=== PATIENT | male | born 1965 | race Caucasian/White ===

== ENCOUNTER 2022-08-10 14:24 | Emergency (ER) | payer SELFPAY ==
[~2022-08-10] VITALS: Ht 177.8 cm; Wt 74.8 kg
[2022-08-10 14:24] VITALS: O2SAT 99
== END 2022-08-10 14:45 | disposition home or self-care (01) ==
LOC: ER 14:28
DX: R61 Generalized hyperhidrosis (principal); I10 Essential (primary) hypertension; E03.9 Hypothyroidism, unspecified; Z87.19 Personal history of other diseases of the digestive system
CPT/HCPCS: 99282